=== PATIENT | male | born 1955 | race African-American/Black ===

== ENCOUNTER 2018-11-09 17:30 | Inpatient (IN) | payer MEDICARE ==
--- NOTE | 2018-11-09 18:14 | ER Document Report ---
ED Seizure <JOSIE LOMELI - Last Filed: 11/09/18 19:00> <VICKI EDGAR - Last Filed: 11/11/18 20:32> - General Chief Complaint: Seizure Stated Complaint: SEIZURE Time Seen by Provider: 11/09/18 18:06 Notes: 63-year-old male was at the health department and had a seizure that was witnessed. He had a long postictal state and was brought in by EMS from which he became combative while in the rig. He was given intranasal Versed which did not help so they gave him ketamine 400 mg IM. He arrived to the emergency department unresponsive with normal vital signs and breathing comfortably on his own. The only history that is known is he is a known apple peptic but unclear what medications he is on. (JOSIE LOMELI) - Related Data Allergies/Adverse Reactions: No Known Allergies Allergy (Unverified 01/26/14 13:42) Past Medical History - Social History Family History: Reviewed & Not Pertinent - Past Medical History Cardiac Medical History: Reports: Hx Hypertension Pulmonary Medical History: Denies: Hx Tuberculosis - Immunizations Hx Diphtheria, Pertussis, Tetanus Vaccination: Yes <JOSIE LOMELI - Last Filed: 11/09/18 19:00> - General Information source: Patient - Social History Smoking Status: Never Smoker Lives with: Alone Family History: Reviewed & Not Pertinent <VICKI EDGAR - Last Filed: 11/11/18 20:32> Review of Systems - Review of Systems -: Yes ROS unobtainable due to patient's medical condition <JOSIE LOMELI - Last Filed: 11/09/18 19:00> Physical Exam <JOSIE LOMELI - Last Filed: 11/09/18 19:00> - Vital signs Vitals: Resp 18 11/09/18 17:32 - Notes Notes: PHYSICAL EXAMINATION: Reviewed vital signs and charting by RN GENERAL: Not responsive, postictal HEAD: Normocephalic, atraumatic. EYES: Pupils equal, round, and reactive to light. Extraocular movements intact. ENT: Oral mucosa moist, tongue midline. NECK: Full range of motion. Supple. Trachea midline. LUNGS: Clear to auscultation bilaterally, no wheezes, rales, or rhonchi. No respiratory distress. Maintaining airway HEART: Regular rate and rhythm. No murmur ABDOMEN: soft, non-tender. Non-distended. Bowel sounds present in all 4 quadrants. no McBurney's point tenderness, no Bowman sign. NEUROLOGICAL: Not responsive due to postictal state PSYCH: Normal affect, normal mood. SKIN: Warm, dry, normal turgor. No rashes or lesions noted. (JSOIE LOMELI) Course - Laboratory Result Diagrams: 11/09/18 17:15 11/09/18 17:15 <JOSIE LOMELI - Last Filed: 11/09/18 19:00> - Laboratory Result Diagrams: 11/10/18 05:24 11/10/18 05:24 <VICKI EDGAR - Last Filed: 11/11/18 20:32> - Re-evaluation Re-evalutation: 11/09/18 18:14 Patient arrived by EMS and received intranasal Versed and ketamine 400 mg IM. Patient is now either post ictal or sedated from the ketamine. Basic lab work ordered, urine ordered, urine drug screen ordered, serum alcohol level ordered. 11/09/18 18:35 11/09/18 18:[address] Peacock. She did open eyes to voice. Patient did follow commands by opening mouth and opening eyes when requested. Pupils were equal and approximately 3 mm. Patient still not phonating. Lab work is still pending. Patient most likely sedated from ketamine and is slowly waking up. Will have to monitor him and wait for him to fully wake up. (JOSIE LOMELI) 11/09/18 On my evaluation patient is oriented to person, place, year, but not to the events. He states he had a seizure at the age of 13, he does not recall additional seizures, he is not on antiseizure medication. His laboratory workup was unremarkable, urine drug screen is negative, CAT scan of the head is unremarkable. On reevaluation patient has no current symptoms but he is persistently very hypertensive now that he is awake. Review of previous records shows that he was on 3 different blood pressure medications, he states he takes no daily medications. Blood pressure was 220s systolic at bedside. Placed on Cardene drip. 11/09/18 21:35 Patient was reevaluated at bedside, blood pressure systolic was in the 180s, s till unchanged from prior. We will discussed with hospitalist for admission for hypertensive emergency, medication noncompliance. Patient was discussed with Dr. Peacock. (VICKI EDGAR) - Vital Signs Vital signs: Temp Pulse Resp BP Pulse Ox 98.4 F 75 21 H 150/96 H 100 11/10/18 08:00 11/10/18 08:50 11/10/18 08:00 11/10/18 08:00 11/10/18 08:00 - Laboratory Laboratory results interpreted by me: 11/09/18 11/09/18 11/09/18 17:15 17:15 20:13 Carbon Dioxide 18 L Glucose 126 H Urine Protein 30 H Urine Ketones TRACE H Urine Blood SMALL H Salicylates < 1.0 L Acetaminophen < 10 L Discharge <JOSIE LOMELI - Last Filed: 11/09/18 19:00> - Discharge Admitting Provider: Hospitalist Unit Admitted: ICU <VICKI EDGAR - Last Filed: 11/11/18 20:32> - Discharge Clinical Impression: Seizure, Hypertensive emergency Condition: Fair Disposition: ADMITTED INPATIENT
[2018-11-09 18:28] LABS: ABSOLUTE LYMPHOCYTES (AUTO) 2.1 10^3/uL (0.5-4.7); ABSOLUTE MONOCYTES (AUTO) 0.7 10^3/uL (0.1-1.4); ABSOLUTE NEUT (AUTO) 5.3 10^3/uL (1.7-8.2); BASOPHILS % (AUTO) 0.4 % (0-2); EOSINOPHILS % (AUTO) 0.2 % (0-6); HEMATOCRIT 48.1 % (37.9-51.0); HEMOGLOBIN 16.3 g/dL (13.5-17.0); LYMPHOCYTES % (AUTO) 25.7 % (13-45); MEAN CORPUSCULAR HEMOGLOBIN 31.3 pg (27.0-33.4); MEAN CORPUSCULAR HGB CONC 33.9 g/dL (32.0-36.0); MEAN CORPUSCULAR VOLUME 92 fl (80-97); MONOCYTES % (AUTO) 8.8 % (3-13); PLATELET COUNT 302 10^3/uL (150-450); RED CELL DISTRIBUTION WIDTH 13.6 % (11.5-14.0); SEGMENTED NEUTROPHILS % (AUTO) 64.9 % (42-78); TOTAL CELLS COUNTED % (AUTO) 100 %; WHITE BLOOD COUNT 8.1 10^3/uL (4.0-10.5)
[2018-11-09 19:12] LABS: ALANINE AMINOTRANSFERASE 24 U/L (21-72); ALBUMIN 4.7 g/dL (3.5-5.0); ALKALINE PHOSPHATASE 83 U/L (38-126); ANION GAP 19 (5-19); ASPARTATE AMINO TRANSFERASE 29 U/L (17-59); BILIRUBIN,DIRECT 0.3 mg/dL (0.0-0.4); BILIRUBIN,TOTAL 0.6 mg/dL (0.2-1.3); BLOOD UREA NITROGEN 14 mg/dL (7-20); CARBON DIOXIDE 18 mmol/L (22-30); CHLORIDE 105 mmol/L (98-107); GLUCOSE 126 mg/dL (75-110); POTASSIUM 3.6 mmol/L (3.6-5.0); SODIUM 141.7 mmol/L (137-145)
[2018-11-09 19:16] LABS: ALCOHOL < 10 mg/dL (NONE DETECTED)
[2018-11-09 19:41] LABS: ACETAMINOPHEN < 10 ug/mL (10-30); SALICYLATE < 1.0 mg/dL (2.0-20.0)
--- NOTE | 2018-11-09 20:16 | RADIOLOGY REPORT (SQ) ---
EXAM DESCRIPTION: CT HEAD WITHOUT IV CONTRAST COMPLETED DATE/TME: 11/09/2018 18:35 CLINICAL HISTORY: 63 years, Male, seizure` This exam was performed according to our departmental dose-optimization program which includes automated exposure control, adjustment of the mA and/or kVp according to patient size and/or use of iterative reconstruction technique where applicable. FINDINGS: No acute intracranial hemorrhage, mass effect or midline shift. No extra-axial fluid collections. Ventricles and subarachnoid spaces are preserved. Unger-white matter differentiation is preserved. Visualized paranasal sinuses demonstrate right maxillary sinus polyps and mucosal thickening. The mastoid air cells are clear. The skull is intact. IMPRESSION: No acute intracranial hemorrhage.
[2018-11-09] MEDS ORDERED: NICARDIPINE HCL RTU, ISO-OS 20 MG/200 ML RTUINJ IV PRN ×2 (20:20→22:04)
[2018-11-09 20:24] LABS: APPEARANCE,URINE CLEAR; BILIRUBIN,URINE NEGATIVE (NEGATIVE); COLOR,URINE STRAW; GLUCOSE, URINE NEGATIVE (NEGATIVE); KETONES,URINE TRACE mg/dL (NEGATIVE); LEUKOCYTE ESTERASE,URINE NEGATIVE (NEGATIVE); NITRITE,URINE NEGATIVE (NEGATIVE); PROTEIN,URINE 30 mg/dL (NEGATIVE); URINE SPECIFIC GRAVITY 1.013; UROBILINOGEN,URINE NEGATIVE mg/dL (<2.0)
[2018-11-09 20:43] LABS: URINE AMPHETAMINES SCREEN NEGATIVE; URINE BARBITURATES SCREEN NEGATIVE; URINE BENZODIAZEPINES SCREEN UNCONFIRMED POSITIVE; URINE COCAINE SCREEN NEGATIVE; URINE MARIJUANA (THC) SCREEN NEGATIVE; URINE METHADONE SCREEN NEGATIVE; URINE PHENCYCLIDINE SCREEN NEGATIVE
[2018-11-09] MEDS ORDERED: ONDANSETRON 4 MG TAB.RAPDIS PO PRN (21:58)
[2018-11-09] MEDS ORDERED: MAGNESIUM HYDROXIDE SUSP 30 ML UDCUP PO PRN (21:58)
[2018-11-09] MEDS ORDERED: TEMAZEPAM 15 MG CAPSULE PO PRN (21:58)
[2018-11-09] MEDS ORDERED: ONDANSETRON HCL INJ/PF 4 MG/2 ML SDV IV PRN (21:58)
[2018-11-09] MEDS ORDERED: MAG HYDROX/AL HYDROX/SIMETH SUSP 30 ML UDCUP PO PRN (21:58)
[2018-11-09] MEDS ORDERED: FAMOTIDINE 20 MG TABLET PO SCH (22:00)
[2018-11-09] MEDS ORDERED: DIAZEPAM INJ 10 MG/2 ML DISP.SYRIN IV PRN (22:02)
[2018-11-09] MEDS ORDERED: ACETAMINOPHEN 325 MG TABLET PO PRN (22:02)
[2018-11-09] MEDS: HEPARIN SOD (PORCINE) 5,000 UNIT/ML 1 ML SYRINGE SUBCUT SCH (22:49)
[2018-11-09 23:46] LABS: CREATINE KINASE MB 8.79 ng/mL (<4.55); TROPONIN I 0.016 ng/mL
--- NOTE | 2018-11-10 00:19 | EKG REPORT ---
SEVERITY:- NORMAL ECG - SINUS RHYTHM : Confirmed by: Favian Marshall 10-Nov-2018 00:18:28
--- NOTE | 2018-11-10 00:55 | PDOC H&P ---
History of Present Illness Admission Date/PCP: 11/09/18 21:37 SAJI FRAGOSO MD Patient complains of: Seizure History of Present Illness: BRANT WILSON is a 63 year old male who presented via EMS the emergency room with an acute seizure at the health department today. Patient has no memory of the seizure or events prior to waking up in the hospital, but the seizure was witnessed by numerous knowledgeable bystanders, having what they described as a tonic-clonic seizure, lasting more than 1 but less than 5 minutes, followed by a post ictal state in which she could not be aroused. He became agitated as he started to arouse in the EMS bus and was promptly sedated with ketamine 400 mg x1. In the ER he responded slowly gaining consciousness and admitted no memory of how he arrived in the ER with his last memory being that he was standing in line at the health department. He denies prior history of seizures upon my direct questioning. He does admit a history of hypertension and a history of a previous TIA/stroke. He has been prescribed medication for hypertension but he has chosen not to take it because he does not think he needs it anymore. In the emergency room he was found to be severely hypertensive requiring a Cardene drip to control his blood pressure, but he had no further seizure activity. He is admitted to the ICU for further evaluation and treatment. Past Medical History Cardiac Medical History: Reports: Hypertension Denies: Atrial Fibrillation, Coronary Artery Disease, DVT, Hyperlipidema, Pul monary Embolism Pulmonary Medical History: Denies: Asthma, Chronic Obstructive Pulmonary Disease (COPD), Tuberculosis EENT Medical History: Denies: Cataracts, Nose - Nasal polyps Neurological Medical History: Reports: Other - TIA versus stroke in 2013 Denies: Migraine, Multiple Sclerosis, Seizures Endocrine Medical History: Denies: Diabetes Mellitus Type 1, Diabetes Mellitus Type 2, Hyperthyroidism, Hypothyroidism Renal/ Medical History: Denies: Chronic Kidney Disease, Nephrolithiasis Malignancy Medical History: Reports: None GI Medical History: Denies: Cirrhosis, Hepatitis Musculoskeltal Medical History: Denies: Arthritis, Gout Skin Medical History: Denies: Eczema, Psoriasis Psychiatric Medical History: Denies: Alcohol Dependency, Substance Abuse, Tobacco Dependency Traumatic Medical History: Reports: None Hematology: Denies: Anemia, Bleeding Tendencies Infectious Medical History: Reports: None Past Surgical History Past Surgical History: Reports: None Social History Information Source: Patient Lives with: Parents Smoking Status: Never Smoker Frequency of Alcohol Use: Rare Hx Recreational Drug Use: No Drugs: None Hx Prescription Drug Abuse: No - Advance Directive Resuscitation Status: Full Code Surrogate healthcare decision maker:: Mother Family History Family History: Hypertension. denies: CAD, DM, Malignancy Parental Family History Reviewed: Yes Children Family History Reviewed: No Sibling(s) Family History Reviewed.: Yes Medication/Allergy Home Medications: No Home Medications 01/26/14 Allergies/Adverse Reactions: No Known Allergies Allergy (Unverified 01/26/14 13:42) Review of Systems Constitutional: ABSENT: chills, fever(s), headache(s) Eyes: ABSENT: visual disturbances, other - Eye pain Ears: ABSENT: hearing changes, other - Ear pain Nose, Mouth, and Throat: ABSENT: mouth pain, sore throat Cardiovascular: ABSENT: chest pain, palpitations Respiratory: ABSENT: cough, dyspnea Gastrointestinal: ABSENT: abdominal pain, constipation, diarrhea, nausea, vomiting Genitourinary: ABSENT: dysuria, hematuria Musculoskeletal: ABSENT: back pain, joint swelling Integumentary: ABSENT: pruritus, rash Neurological: ABSENT: confusion, convulsions, focal weakness, memory loss Psychiatric: ABSENT: anxiety, depression Endocrine: ABSENT: cold intolerance, heat intolerance Hematologic/Lymphatic: ABSENT: easy bleeding, easy bruising Physical Exam Vital Signs: Temp Pulse Resp BP Pulse Ox 98.0 F 25 H 167/96 H 99 11/09/18 21:00 11/09/18 21:46 11/09/18 21:46 11/09/18 21:46 Intake & Output 11/07/18 11/08/18 11/09/18 23:59 23:59 23:59 Weight 86.183 kg General appearance: PRESENT: no acute distress, cooperative Head exam: PRESENT: atraumatic, normocephalic Eye exam: PRESENT: conjunctiva pink, EOMI, PERRLA. ABSENT: scleral icterus Ear exam: PRESENT: normal external ear exam. ABSENT: bleeding, drainage Mouth exam: PRESENT: dry mucosa, neck supple, tongue midline, other - No bite edouard or other injuries to the tongue or oral mucosa Teeth exam: PRESENT: dental caries, poor dentation Throat exam: ABSENT: tonsillar exudate, tonsillogmegaly Neck exam: ABSENT: thyromegaly, tracheal deviation Respiratory exam: PRESENT: clear to auscultation clare, symmetrical, unlabored Cardiovascular exam: PRESENT: RRR. ABSENT: clicks, gallop, rubs Pulses: PRESENT: normal radial pulses, normal dorsalis pedis pul Vascular exam: PRESENT: normal capillary refill. ABSENT: pallor GI/Abdominal exam: PRESENT: normal bowel sounds, soft. ABSENT: tenderness Rectal exam: PRESENT: deferred Extremities exam: ABSENT: joint swelling, pedal edema Musculoskeletal exam: PRESENT: full ROM, normal inspection. ABSENT: tenderness Neurological exam: PRESENT: alert, oriented to person, oriented to place, oriented to time, oriented to situation, CN II-XII grossly intact. ABSENT: motor sensory deficit Psychiatric exam: PRESENT: appropriate affect, normal mood Skin exam: PRESENT: dry, intact, warm. ABSENT: jaundice, rash, urticaria Results Laboratory Results: 11/09/18 17:15 11/09/18 17:15 11/09/18 11/09/18 11/09/18 17:15 17:15 20:13 WBC 8.1 RBC 5.20 Hgb 16.3 Hct 48.1 MCV 92 MCH 31.3 MCHC 33.9 RDW 13.6 Plt Count 302 Seg Neutrophils % 64.9 Lymphocytes % 25.7 Monocytes % 8.8 Eosinophils % 0.2 Basophils % 0.4 Absolute Neutrophils 5.3 Absolute Lymphocytes 2.1 Absolute Monocytes 0.7 Absolute Eosinophils 0.0 Absolute Basophils 0.0 Sodium 141.7 Potassium 3.6 Chloride 105 Carbon Dioxide 18 L Anion Gap 19 BUN 14 Creatinine 0.98 Est GFR ( Amer) > 60 Est GFR (Non-Af Amer) > 60 Glucose 126 H Calcium 10.0 Total Bilirubin 0.6 AST 29 ALT 24 Alkaline Phosphatase 83 Total Protein 8.0 Albumin 4.7 Urine Color STRAW Urine Appearance CLEAR Urine pH 7.0 Ur Specific [place] 1.013 Urine Protein 30 H Urine Glucose (UA) NEGATIVE Urine Ketones TRACE H Urine Blood SMALL H Urine Nitrite NEGATIVE Ur Leukocyte Esterase NEGATIVE Urine WBC (Auto) 1 Urine RBC (Auto) 1 11/09/18 17:15 Troponin I < 0.012 Impressions: Head CT 11/09/18 18:35 IMPRESSION: No acute intracranial hemorrhage. Assessment & Plan - Diagnosis (1) Hypertensive emergency Is this a current diagnosis for this admission?: Yes Plan: Patient is admitted to the ICU for continuation of the Cardene intravenous infusion until such time as he can be treated with other agents along successful withdrawal of the Cardene. (2) Seizure Is this a current diagnosis for this admission?: Yes Plan: Patient will be treated with observation and use of Valium 10 mg IV every hour as needed seizure activity. An EEG will be obtained and a neurologic consultation via telemedicine by the day shift hospitalist. (3) Medically noncompliant Is this a current diagnosis for this admission?: Yes Plan: Patient will be encouraged to take his antihypertensive medications in the future stressing his prior stroke and his current event which may or may not actually be related to his hypertension. (4) History of stroke in adulthood Is this a current diagnosis for this admission?: Yes Plan: Patient will have a MRI performed during his hospital course to evaluate his present status at that time evaluation of his previous CVA may also be obtained. - Time Time Spent: 30 to 50 Minutes Critical Time spent with patient: Less than 15 minutes Medications reviewed and adjusted accordingly: No - No medications Anticipated discharge: Home - Inpatient Certification Based on my medical assessment, after consideration of the patient's comorbidities, presenting symptoms, or acuity I expect that the services needed warrant INPATIENT care.: Yes I certify that my determination is in accordance with my understanding of Medicare's requirements for reasonable and necessary INPATIENT services [42 CFR 412.3e].: Yes Medical Necessity: Need Close Monitoring Due to Risk of Patient Decompensation, Need For Continuous Telemetry Monitoring, Need for Neurological Checks, Risk of Complication if Not Cared For in Hospital, Risk of Diagnosis Which Will Require Inpatient Eval/Care/Monitoring
[2018-11-10] MEDS ORDERED: METOPROLOL SUCCINATE 50 MG TAB.SR.24H PO ONE (03:00)
[2018-11-10] MEDS: HEPARIN SOD (PORCINE) 5,000 UNIT/ML 1 ML SYRINGE SUBCUT SCH (05:21)
[2018-11-10 05:42] LABS: HEMATOCRIT 45.9 % (37.9-51.0); HEMOGLOBIN 15.8 g/dL (13.5-17.0); MEAN CORPUSCULAR HGB CONC 34.5 g/dL (32.0-36.0); MEAN CORPUSCULAR VOLUME 90 fl (80-97); PLATELET COUNT 276 10^3/uL (150-450); RED CELL DISTRIBUTION WIDTH 13.7 % (11.5-14.0); WHITE BLOOD COUNT 11.4 10^3/uL (4.0-10.5)
[2018-11-10 06:05] LABS: ANION GAP 9 (5-19); BLOOD UREA NITROGEN 11 mg/dL (7-20); CALCIUM 9.9 mg/dL (8.4-10.2); CARBON DIOXIDE 26 mmol/L (22-30); CHLORIDE 103 mmol/L (98-107); CHOLESTEROL 172.91 mg/dL (0-200); CREATINE KINASE 596 U/L (55-170); GLUCOSE 106 mg/dL (75-110); POTASSIUM 3.5 mmol/L (3.6-5.0); SODIUM 138.2 mmol/L (137-145); TRIGLYCERIDES 69 mg/dL (<150)
[2018-11-10 06:16] LABS: DIRECT LDL 82 mg/dL (<100)
[2018-11-10 06:18] LABS: CREATINE KINASE MB 7.77 ng/mL (<4.55); TROPONIN I 0.015 ng/mL
[2018-11-10 06:22] LABS: FREE T3 3.57 pg/mL (2.77-5.27); FREE T4 (FREE THYROXINE) 1.11 ng/dL (0.78-2.19)
[2018-11-10 06:35] LABS: THYROID STIMULATING HORMONE 1.28 uIU/mL (0.47-4.68)
[2018-11-10] MEDS ORDERED: HYDRALAZINE HCL INJ/PF 20 MG/1 ML SDV IV PRN (06:41)
[2018-11-10 08:21] VITALS: BP 150/96
[2018-11-10] MEDS ORDERED: DOCUSATE SODIUM 100 MG/10 ML UDC PO SCH (10:00)
[2018-11-10] MEDS ORDERED: METOPROLOL SUCCINATE 50 MG TAB.SR.24H PO SCH (22:00)
--- NOTE | 2018-11-11 07:46 | Left Against Medical Advice ---
Against Medical Advice Admission Date/Time: 11/09/18 21:37 Primary Care Provider: SAJI FRAGOSO MD Date of Patient Emmigration: 11/10/18 - Diagnosis: (1) Hypertensive urgency Is this a current diagnosis for this admission?: Yes (2) Seizure Is this a current diagnosis for this admission?: Yes (3) History of stroke in adulthood Is this a current diagnosis for this admission?: Yes (4) Medically noncompliant Is this a current diagnosis for this admission?: Yes - Summary: Summary: Please see Admission and Progress Notes as well. BRANT WILSON is a 63 M, who LEFT AGAINST MEDICAL ADVICE. The Patient was admitted on 11/09/18 21:37. He has a history of hypertension with noncompliance as well as a previous TIA or stroke. The patient had a witnessed seizure while at [facility]. He had amnesia for the episode. On admission his blood pressure was found to be 210/120. He was placed on Cardene infusion. This morning the respiratory therapist was preparing for an EEG. The patient refused. I discussed with the patient the need for the study. This was a true seizure. If in fact there is an underlying chronic issue he would need antiseizure medication. In addition his blood pressure still quite high and he already has a history of stroke. He did have a CT scan in the emergency department that was unremarkable. He told me that he feels fine. He stated that he has to leave. His truck was parked at the neonatal social worker office because he came to the hospital by EMS. They are paving the road. His truck was going to be towed. He has no one to move his truck. He declined to try and have the police intervene or move his vehicle. I again reviewed the significant risks of leaving AGAINST MEDICAL ADVICE. He still declined to stay. I encouraged him to follow-up with his primary care physician as soon as possible as he absolutely needs to be on medications and he should have an EEG as well. I instructed the nurse to provide the patient with the appropriate paperwork to sign out AGAINST MEDICAL ADVICE.
== END 2018-11-10 11:05 | disposition left against medical advice (07) | DRG 305 ==
LOC: ER 17:30 → EH 21:37 → ICU 11-10 02:31
PROVIDERS: ADMIT Emergency Medicine; ATTEND Emergency Medicine
DX: I16.1 Hypertensive emergency (principal); R56.9 Unspecified convulsions; I10 Essential (primary) hypertension; Z86.73 Personal history of transient ischemic attack (TIA), and cerebral infarction without residual deficits; Z91.14 Patient's other noncompliance with medication regimen
CPT/HCPCS: 36415; 70450; 80048; 80053; 80061; 80307; 81001; 82550; 82553; 83036; 83735; 84439; 84443; 84481; 84484; 85025; 85027; 93005; 93010; 99285; J1644; J3490